=== PATIENT | male | born 2000 | race Two or more races ===

== ENCOUNTER 2022-02-16 17:49 | Inpatient (IN) | payer OTHER ==
[~2022-02-16] VITALS: Ht 182.9 cm; Wt 69.5 kg
[2022-02-16 20:55] VITALS: BP 117/60
[2022-02-16 22:00] VITALS: BP 122/73
[2022-02-16] MEDS ORDERED: MORPHINE SULFATE INJ 2 MG/ml SYRG IV PRN (23:15)
[2022-02-16] MEDS ORDERED: cefTRIAXone 1GM/50ML D5W 50 ML IV ONE (23:15)
[2022-02-16] MEDS ORDERED: TEMAZEPAM 15 MG CAP PO PRN (23:15)
[2022-02-16] MEDS ORDERED: metroNIDAZOLE 500MG/100ML 100 ML IV ONE (23:15)
[2022-02-16] MEDS ORDERED: PANTOPRAZOLE 40 MG/10 ML VIAL INJ IV ONE (23:15)
[2022-02-16] MEDS ORDERED: ACETAMINOPHEN 325 MG TAB PO PRN (23:15)
[2022-02-16] MEDS ORDERED: HYDROcodone-ACET 5/325MG TAB PO PRN (23:15)
[2022-02-16] MEDS ORDERED: ONDANSETRON HCL 4 MG/2 ML VIAL IV PRN (23:15)
[2022-02-17 00:10] LABS: Basophils # (auto) 0 10 ^3/uL (0-0.2); Basophils % (auto) 0.3 % (0.0-2.0); Eosinophils # (auto) 0.1 10 ^3/uL (0-0.8); Eosinophils % (auto) 1.1 % (0.0-7.0); Hemoglobin 15.2 g/dL (13.5-17.5); Lymphocytes # (auto) 1.8 10 ^3/uL (0.4-5.4); Lymphocytes % (auto) 18.6 % (10.0-50.0); Mean Corpuscular Hemoglobin 30.2 pg (28.0-32.0); Mean Corpuscular Hgb Conc. 34.6 g/dL (32.0-36.0); Mean Corpuscular Volume 87.3 fL (80.0-100.0); Monocytes # (auto) 0.9 10 ^3/uL (0-1.3); Monocytes % (auto) 9.1 % (0.0-12.0); Neutrophils # (auto) 6.9 10 ^3/uL (1.6-8.6); Neutrophils % (auto) 70.9 % (37.0-80.0); Red Blood Cells 5.04 10^6/uL (4.5-5.90); Red Cell Distribution Width 13.5 % (11.8-14.3); White Blood Cell 9.7 10^3/uL (4.4-10.8)
[2022-02-17 00:17] LABS: Partial Thromboplastin Time 27.9 sec (24.6-33.4)
[2022-02-17 00:20] LABS: Albumin 4.1 g/dL (3.4-5.0); Calcium 8.9 mg/dL (8.5-10.1); Potassium 3.8 mmol/L (3.5-5.1)
[2022-02-17 00:23] LABS: Bilirubin, Total 0.8 mg/dL (0.2-1.0); Total Protein 7.6 g/dL (6.4-8.2)
[2022-02-17 05:00] VITALS: BP 117/69
[2022-02-17] MEDS: metroNIDAZOLE 500MG/100ML 100 ML IV SCH ×3 (06:59→22:09)
[2022-02-17 08:00] VITALS: BP 111/60
[2022-02-17 09:00] VITALS: BP 104/67
[2022-02-17] MEDS: PANTOPRAZOLE 40 MG/10 ML VIAL INJ IV SCH (10:04)
[2022-02-17] MEDS: cefTRIAXone 1GM/50ML D5W 50 ML IV SCH (10:04)
[2022-02-17 10:38] LABS: Urine Bacteria FEW /hpf (None Seen); Urine Blood Negative /uL (Negative); Urine Mucus FEW (None Seen); Urine Specific Gravity 1.033 (1.001-1.035); Urine WBC 8 /hpf (0 - 3)
[2022-02-17 10:45] LABS: Amphetamine Screen, Urine NEGATIVE (NEGATIVE); Barbiturate Scree,Urine NEGATIVE (NEGATIVE); Benzodiazephine Screen, Urine POSITIVE (NEGATIVE); Cannabinoid Screen, Urine NEGATIVE (NEGATIVE); Cocaine Screen, Urine NEGATIVE (NEGATIVE); Opiate Scree,Urine NEGATIVE (NEGATIVE); Phencyclidine Screen, Urine NEGATIVE (NEGATIVE)
[2022-02-17 13:00] VITALS: BP 125/56
[2022-02-17 17:00] VITALS: BP 134/70
[2022-02-17 22:00] VITALS: BP 110/69
[2022-02-18 05:00] VITALS: BP 106/47
[2022-02-18 05:07] LABS: Basophils # (auto) 0 10 ^3/uL (0-0.2); Basophils % (auto) 0.2 % (0.0-2.0); Eosinophils # (auto) 0.3 10 ^3/uL (0-0.8); Eosinophils % (auto) 3.2 % (0.0-7.0); Hematocrit 41.8 % (41.0-53.0); Hemoglobin 14.6 g/dL (13.5-17.5); Lymphocytes % (auto) 23.8 % (10.0-50.0); Mean Corpuscular Hemoglobin 30.3 pg (28.0-32.0); Mean Corpuscular Volume 86.7 fL (80.0-100.0); Monocytes # (auto) 0.7 10 ^3/uL (0-1.3); Monocytes % (auto) 8.8 % (0.0-12.0); Neutrophils # (auto) 5.3 10 ^3/uL (1.6-8.6); Nucleated Red Blood Cells % 0.1 %; Red Blood Cells 4.82 10^6/uL (4.5-5.90); Red Cell Distribution Width 13.6 % (11.8-14.3); White Blood Cell 8.3 10^3/uL (4.4-10.8)
[2022-02-18 05:19] LABS: BUN/Creatinine Ratio 10.4; Calcium 8.6 mg/dL (8.5-10.1); Potassium 3.8 mmol/L (3.5-5.1)
[2022-02-18] MEDS: metroNIDAZOLE 500MG/100ML 100 ML IV SCH (06:36)
[2022-02-18 08:00] VITALS: BP 106/66
[2022-02-18 09:00] VITALS: BP 96/43
[2022-02-18] MEDS: PANTOPRAZOLE 40 MG/10 ML VIAL INJ IV SCH (10:29)
[2022-02-18] MEDS: cefTRIAXone 1GM/50ML D5W 50 ML IV SCH (10:29)
[2022-02-18 13:00] VITALS: BP 116/75
[2022-02-18] MEDS: metroNIDAZOLE 500 MG TAB PO SCH ×2 (14:00→21:34)
[2022-02-18 17:00] VITALS: BP 119/73
[2022-02-18 22:12] VITALS: BP 129/76
[2022-02-19 05:16] VITALS: BP 103/55
[2022-02-19] MEDS ORDERED: LORazepam 2MG/ML-1ML VIAL IM ONE (05:45)
[2022-02-19] MEDS: metroNIDAZOLE 500 MG TAB PO SCH ×3 (06:01→21:17)
[2022-02-19 07:19] LABS: Basophils # (auto) 0 10 ^3/uL (0-0.2); Basophils % (auto) 0.3 % (0.0-2.0); Eosinophils # (auto) 0.3 10 ^3/uL (0-0.8); Eosinophils % (auto) 3.3 % (0.0-7.0); Hematocrit 43.4 % (41.0-53.0); Hemoglobin 14.6 g/dL (13.5-17.5); Lymphocytes % (auto) 24.8 % (10.0-50.0); Mean Corpuscular Hemoglobin 29.3 pg (28.0-32.0); Mean Corpuscular Hgb Conc. 33.6 g/dL (32.0-36.0); Mean Corpuscular Volume 87.1 fL (80.0-100.0); Monocytes # (auto) 0.7 10 ^3/uL (0-1.3); Neutrophils % (auto) 62.6 % (37.0-80.0); Nucleated Red Blood Cells % 0.2 %; Red Blood Cells 4.98 10^6/uL (4.5-5.90); Red Cell Distribution Width 13.3 % (11.8-14.3)
[2022-02-19 07:38] LABS: Calcium 8.6 mg/dL (8.5-10.1); Potassium 3.7 mmol/L (3.5-5.1)
[2022-02-19 07:42] LABS: BUN/Creatinine Ratio 13.1
[2022-02-19] MEDS ORDERED: OMNIPAQUE ORAL SOLN 500ml 12mg/ml PO ONE (07:58)
[2022-02-19 08:00] VITALS: BP 122/77
[2022-02-19] MEDS: PANTOPRAZOLE 40 MG TAB PO SCH (08:34)
[2022-02-19] MEDS: cefTRIAXone 1GM/50ML D5W 50 ML IV SCH (08:34)
[2022-02-19 09:14] VITALS: BP 112/60
[2022-02-19] MEDS ORDERED: LORazepam 0.5 MG TAB PO ONE (10:00)
[2022-02-19] MEDS ORDERED: IOHEXOL 300 MG/ML 100ML BOTTLE IJ ONE (10:17)
[2022-02-19 13:00] VITALS: BP 122/77
[2022-02-19 17:15] VITALS: BP 131/81
[2022-02-19] MEDS: methylPREDNISolone SOD SUCC 40 MG/ML VL IV SCH (21:17)
[2022-02-19] MEDS: MESALAMINE 400mg Delayed Release Cap PO SCH (21:46)
[2022-02-19 22:00] VITALS: BP 121/71
[2022-02-20 05:00] VITALS: BP 105/48
[2022-02-20] MEDS: metroNIDAZOLE 500 MG TAB PO SCH ×3 (05:19→21:28)
[2022-02-20] MEDS: MESALAMINE 400mg Delayed Release Cap PO SCH ×3 (07:04→21:28)
[2022-02-20 08:00] VITALS: BP 107/69
[2022-02-20 09:00] VITALS: BP 117/69
[2022-02-20] MEDS: cefTRIAXone 1GM/50ML D5W 50 ML IV SCH (10:40)
[2022-02-20] MEDS: methylPREDNISolone SOD SUCC 40 MG/ML VL IV SCH ×2 (10:40→21:28)
[2022-02-20] MEDS: PANTOPRAZOLE 40 MG TAB PO SCH (10:40)
[2022-02-20 13:00] VITALS: BP 126/51
[2022-02-20] MEDS ORDERED: GOLYTELY 4L KIT PO ONE (14:00)
[2022-02-20 17:00] VITALS: BP 141/72
[2022-02-20 22:00] VITALS: BP 129/73
[2022-02-21 05:00] VITALS: BP 126/75
[2022-02-21] MEDS: metroNIDAZOLE 500 MG TAB PO SCH ×2 (05:41→14:00)
[2022-02-21] MEDS: MESALAMINE 400mg Delayed Release Cap PO SCH ×2 (05:41→14:00)
[2022-02-21] MEDS ORDERED: MAGNESIUM CITRATE SOLUTION 300 ML BTL PO ONE (06:00)
[2022-02-21] MEDS ORDERED: GOLYTELY 4L KIT PO ONE (06:00)
[2022-02-21] MEDS ORDERED: SODIUM CHLORIDE LOCK 10 ML ONE (08:53)
[2022-02-21 09:00] VITALS: BP 134/71
[2022-02-21] MEDS: cefTRIAXone 1GM/50ML D5W 50 ML IV SCH (10:52)
[2022-02-21] MEDS: PANTOPRAZOLE 40 MG TAB PO SCH (10:52)
[2022-02-21] MEDS: methylPREDNISolone SOD SUCC 40 MG/ML VL IV SCH (10:53)
[2022-02-21 12:51] VITALS: BP 120/73
[2022-02-21] MEDS: fentaNYL CITRATE 100 MCG/2 ML VL ONE ×4 (16:31→16:40)
[2022-02-21] MEDS: diphenhdrAMINE HCL 50 MG/1 ML VL ONE ×2 (16:31→16:34)
[2022-02-21] MEDS: MIDAZOLAM HCL 5 MG/ML-1ML VIAL ONE ×3 (16:31→16:37)
[2022-02-21] MEDS ORDERED: MIDAZOLAM HCL 5 MG/ML-1ML VIAL ONE (16:38)
[2022-02-21 17:20] VITALS: BP 105/50
== END 2022-02-21 20:20 | disposition home or self-care (01) | DRG 392 ==
LOC: WEST WING 20:43
PROVIDERS: ADMIT Internal Medicine; ATTEND Internal Medicine
PROC: 0DBL8ZX Excision of Transverse Colon, Via Natural or Artificial Opening Endoscopic, Diagnostic (ICD-10-PCS; 2022-02-21)
PROC: 0DBM8ZX Excision of Descending Colon, Via Natural or Artificial Opening Endoscopic, Diagnostic (ICD-10-PCS; principal; 2022-02-21 16:28)
DX: A09 Infectious gastroenteritis and colitis, unspecified (principal); K62.5 Hemorrhage of anus and rectum; N39.0 Urinary tract infection, site not specified; Q43.8 Other specified congenital malformations of intestine; Z87.891 Personal history of nicotine dependence; F10.10 Alcohol abuse, uncomplicated; K64.8 Other hemorrhoids; Z20.822 Contact with and (suspected) exposure to COVID-19
CPT/HCPCS: 36415; 45380; 71045; 74177; 80048; 80053; 80307; 81001; 82270; 82378; 83516; 83520; 84443; 85025; 85610; 85652; 85730; 86141; 86225; 86235; 86256; 87081; C9113; G0378; J0696; J2250; J3490